=== PATIENT | female | born 1975 | race American Indian/Alaskan Native ===

== ENCOUNTER 2021-01-22 20:40 | Emergency (ER) | payer MEDICAID, OTHER ==
[2021-01-22] MEDS ORDERED: LORazepam 2 MG/ML VIAL IV ONE (21:39)
[2021-01-22 22:38] LABS: Basophils % (Auto) 0.4 % (0.0-1.8); Eosinophils % (Auto) 0.6 % (0.0-4.3); Hematocrit 38.6 % (30.3-42.9); Hemoglobin 12.3 gm/dl (10.1-14.3); Lymphocytes # (Auto) 1.4 K/mm3 (1.2-5.4); Lymphocytes % (Auto) 22.1 % (13.4-35.0); Mean Corpuscular HGB Conc 32 % (30-34); Mean Corpuscular Volume 73 fl (79-97); Monocytes # (Auto) 0.2 K/mm3 (0.0-0.8); Monocytes % (Auto) 3.5 % (0.0-7.3); Platelet Count 236 K/mm3 (140-440); Red Blood Count 5.28 M/mm3 (3.65-5.03); Red Cell Distribution Width 18.1 % (13.2-15.2)
--- NOTE | 2021-01-22 22:43 | Emergency Department Report ---
ED General Adult HPI - General Chief complaint: Anxiety Stated complaint: PANIC ATTACK Time Seen by Provider: 01/22/21 20:57 Source: patient, EMS Mode of arrival: Stretcher Limitations: No Limitations - History of Present Illness Initial comments: Patient presents to the emergency department with a chief complaint of of anxiety attack. Patient states that her heart is racing and she feels as if everything is collapsing around her. Patient is very tearful on exam and it takes quite some time for her to give me the complete story. Patient denies land icidal homicidal ideation. Patient denies any visual or auditory hallucinations. Patient denies any chest pain, abdominal pain. Patient does endorse a mild headache that she describes as throbbing in nature not worse headache of her life. She also feels slight tightness in her chest which is con sistent with prior anxiety attacks per the patient -: Sudden Radiation: non-radiation Severity scale (0 -10): 4 Quality: dull Consistency: constant Improves with: none Worsens with: none Associated Symptoms: denies other symptoms Treatments Prior to Arrival: none - Related Data Home Medications Medication Instructions Recorded Confirmed Last Taken Pnv Plus Multivit Tab 1 tab PO DAILY 04/28/16 04/28/16 Unknown glyBURIDE [Diabeta] 2.5 mg PO BID 04/28/16 04/28/16 Unknown Previous Rx's Medication Instructions Recorded Last Taken Type Ferrous Sulfate [Feosol 325 MG tab] 325 mg PO BID #60 tablet 04/27/16 Unknown Rx HYDROcodone/APAP 5-325 [[place] 1 each PO Q6HR PRN #30 tablet 04/27/16 Unknown Rx 5/325] Ibuprofen [Motrin] 800 mg PO Q8HR PRN #30 tablet 04/27/16 Unknown Rx Vit Calc,Iron,Folic 1 each PO DAILY #30 tablet 04/27/16 Unknown Rx [ Vitamins] hydrOXYzine HCL [Atarax] 25 mg PO Q8HR PRN #24 tablet 01/23/21 Unknown Rx Allergies Allergy/AdvReac Type Severity Reaction Status Date / Time Latex, Natural Rubber Allergy Severe Rash Verified 02/11/16 14:46 ED Review of Systems ROS: Stated complaint: PANIC ATTACK Other details as noted in HPI Constitutional: denies: chills, fever Eyes: denies: eye pain, eye discharge, vision change ENT: denies: ear pain, throat pain Respiratory: denies: cough, shortness of breath, wheezing Cardiovascular: denies: chest pain, palpitations Endocrine: no symptoms reported Gastrointestinal: denies: abdominal pain, nausea, diarrhea Genitourinary: denies: urgency, dysuria, discharge Musculoskeletal: denies: back pain, joint swelling, arthralgia Skin: denies: rash, lesions Neurological: denies: headache, weakness, paresthesias Psychiatric: anxiety. denies: depression Hematological/Lymphatic: denies: easy bleeding, easy bruising ED Past Medical Hx - Past Medical History Previous Medical History?: Yes Hx Hypertension: Yes Hx Congestive Heart Failure: No Hx Diabetes: Yes (gdm) Hx Deep Vein Thrombosis: No Hx Renal Disease: No Hx Sickle Cell Disease: No Hx Seizures: No Hx Asthma: No Hx COPD: No Hx HIV: No - Surgical History Past Surgical History?: Yes Hx Cholecystectomy: Yes Additional Surgical History: C SECTION - Social History Smoking Status: Unknown if ever smoked - Medications Home Medications: Home Medications Medication Instructions Recorded Confirmed Last Taken Type Ferrous Sulfate [Feosol 325 MG tab] 325 mg PO BID #60 tablet 04/27/16 Unknown Rx HYDROcodone/APAP 5-325 [[place] 1 each PO Q6HR PRN #30 tablet 04/27/16 Unknown Rx 5/325] Ibuprofen [Motrin] 800 mg PO Q8HR PRN #30 tablet 04/27/16 Unknown Rx Vit Calc,Iron,Folic 1 each PO DAILY #30 tablet 04/27/16 Unknown Rx [ Vitamins] Pnv Plus Multivit Tab 1 tab PO DAILY 04/28/16 04/28/16 Unknown History glyBURIDE [Diabeta] 2.5 mg PO BID 04/28/16 04/28/16 Unknown History hydrOXYzine HCL [Atarax] 25 mg PO Q8HR PRN #24 tablet 01/23/21 Unknown Rx ED Physical Exam - General Limitations: No Limitations General appearance: alert, in no apparent distress, anxious, other (Tearful) - Head Head exam: Present: atraumatic, normocephalic - Eye Eye exam: Present: normal appearance - ENT ENT exam: Present: mucous membranes moist - Neck Neck exam: Present: normal inspection - Respiratory Respiratory exam: Present: normal lung sounds bilaterally. Absent: respiratory distress - Cardiovascular Cardiovascular Exam: Present: normal rhythm, tachycardia. Absent: systolic mur mur, diastolic murmur, rubs, gallop - GI/Abdominal GI/Abdominal exam: Present: soft, normal bowel sounds. Absent: distended, tenderness - Extremities Exam Extremities exam: Present: normal inspection - Back Exam Back exam: Present: normal inspection - Neurological Exam Neurological exam: Present: alert, oriented X3, CN II-XII intact. Absent: motor sensory deficit - Psychiatric Psychiatric exam: Present: normal affect, normal mood - Skin Skin exam: Present: warm, dry, intact, normal color. Absent: rash ED Course Vital Signs 01/22/21 01/22/21 01/22/21 20:52 22:05 23:44 Temperature 98.2 F Pulse Rate 91 H 95 H Respiratory 16 20 18 Rate Blood Pressure 110/53 130/72 [Left] O2 Sat by Pulse 100 99 100 Oximetry ED Medical Decision Making - Lab Data Result diagrams: 01/22/21 21:50 01/22/21 21:50 Lab Results 01/22/21 01/22/21 01/22/21 Range/Units 21:50 21:50 21:50 WBC 6.2 (4.5-11.0) K/mm3 RBC 5.28 H (3.65-5.03) M/mm3 Hgb 12.3 (10.1-14.3) gm/dl Hct 38.6 (30.3-42.9) % MCV 73 L (79-97) fl MCH 23 L (28-32) pg MCHC 32 (30-34) % RDW 18.1 H (13.2-15.2) % Plt Count 236 (140-440) K/mm3 Lymph % (Auto) 22.1 (13.4-35.0) % [place] % (Auto) 3.5 (0.0-7.3) % Eos % (Auto) 0.6 (0.0-4.3) % Baso % (Auto) 0.4 (0.0-1.8) % Lymph # (Auto) 1.4 (1.2-5.4) K/mm3 [place] # (Auto) 0.2 (0.0-0.8) K/mm3 Eos # (Auto) 0.0 (0.0-0.4) K/mm3 Baso # (Auto) 0.0 (0.0-0.1) K/mm3 Seg Neutrophils % 73.4 H (40.0-70.0) % Seg Neutrophils # 4.6 (1.8-7.7) K/mm3 PT 12.6 (12.2-14.9) Sec. INR 0.89 (0.87-1.13) APTT 25.4 (24.2-36.6) Sec. Sodium 135 L (137-145) mmol/L Potassium 3.4 L (3.6-5.0) mmol/L Chloride 99.7 (98-107) mmol/L Carbon Dioxide 19 L (22-30) mmol/L Anion Gap 20 mmol/L BUN 11 (7-17) mg/dL Creatinine 0.8 (0.6-1.2) mg/dL Estimated GFR > 60 ml/min BUN/Creatinine Ratio 14 % Glucose 155 H (65-100) mg/dL Calcium 9.6 (8.4-10.2) mg/dL Total Bilirubin 0.30 (0.1-1.2) mg/dL AST 13 (5-40) units/L ALT 10 (7-56) units/L Alkaline Phosphatase 86 (35-129) units/L Troponin T < 0.010 (0.00-0.029) ng/mL Total Protein 7.3 (6.3-8.2) g/dL Albumin 4.2 (3.9-5) g/dL Albumin/Globulin Ratio 1.4 % - Medical Decision Making given ativan Critical care attestation.: If time is entered above; I have spent that time in minutes in the direct care of this critically ill patient, excluding procedure time. ED Disposition Clinical Impression: Anxiousness Disposition: DC-01 TO HOME OR SELFCARE Is pt being admited?: No Does the pt Need Aspirin: No Condition: Stable Instructions: Panic Attack Additional Instructions: return if worse Prescriptions: hydrOXYzine HCL [Atarax] 25 mg PO Q8HR PRN #24 tablet PRN Reason: Anxiety Referrals: PRIMARY CARE, [Primary Care Provider] - 3-5 Days ANTIONE HOBBS MD [Staff Physician] - 3-5 Days [facility] [Outside] - 3-5 Days Time of Disposition: 00:05
[2021-01-22 22:45] LABS: Alanine Aminotransferase 10 units/L (7-56); Albumin 4.2 g/dL (3.9-5); BUN/Creatinine Ratio 14; Blood Urea Nitrogen 11 mg/dL (7-17); Calcium 9.6 mg/dL (8.4-10.2); Hemolysis Index 4
[2021-01-22 22:49] LABS: INR 0.89 (0.87-1.13)
[2021-01-22 22:50] LABS: Partial Thromboplastin Time 25.4 Sec. (24.2-36.6)
[2021-01-23 01:29] VITALS: BP 122/80
--- NOTE | 2021-01-27 09:35 | Electrocardiograph Report ---
[facility] Test Date: 2021-01-23 Test Time: 02:38:31 Pat Name: NINOSKA STARR Department: Room: Gender: F Insert Cutter: MARLON : 1975 Requested By: BAUDILIO FRENCH Order Number: [id number] Reading MD: Leighton Steve Measurements Intervals [place] Rate: 79 P: 42 DC: 269 QRS: -48 QRSD: 93 T: -32 QT: 396 QTc: 455 Interpretive Statements Sinus rhythm Prolonged DC interval Probable left atrial enlargement No previous ECG available for comparison Electronically Signed On 01-27-2021 9:35:30 EDT by Leighton Steve
== END 2021-01-23 01:36 | disposition home or self-care (01) ==
LOC: ED 20:40
DX: F41.9 Anxiety disorder, unspecified (principal); I10 Essential (primary) hypertension; E11.9 Type 2 diabetes mellitus without complications; Z90.49 Acquired absence of other specified parts of digestive tract; Z98.890 Other specified postprocedural states; Z79.899 Other long term (current) drug therapy; Z91.040 Latex allergy status; Z88.8 Allergy status to other drugs, medicaments and biological substances
CPT/HCPCS: 36415; 80053; 84484; 85025; 85610; 85730; 96374; 99284; J2060; 93005